=== PATIENT | female | born 1985 | race Caucasian/White ===

== ENCOUNTER 2017-04-11 10:55 | Emergency (ER) | payer OTHER ==
--- NOTE | 2017-04-11 11:12 | UC ---
Knee Pain HPI - HPI Summary HPI Summary: 31 YEAR OLD FEMALE PRESENTS WITH COMPLAINS OF LEFT LATERAL KNEE PAIN SECONDARY TO BLUNT TRAUMA. - History of Current Complaint Stated Complaint: LEFT KNEE INJURY WC Time Seen by Provider: 04/11/17 11:12 Hx Obtained From: Patient Hx Last Menstrual Period: 08/27/12 Onset/Duration: Sudden Onset Severity Initially: Moderate Severity Currently: Moderate - Allergies/Home Medications Allergies/Adverse Reactions: Allergies Allergy/AdvReac Type Severity Reaction Status Date / Time Shellfish Allergy Allergy Intermediate ANAPHYLACTI Verified 04/11/17 11:16 C PMH/Surg Hx/FS Hx/Imm Hx Previously Healthy: Yes - Surgical History Surgical History: Yes Surgery Procedure, Year, and Place: HERNIA REPAIR CHILD - Social History Substance Use Type: None Review of Systems Constitutional: Negative Skin: Negative Eyes: Negative ENT: Negative Respiratory: Negative Cardiovascular: Negative Gastrointestinal: Negative Genitourinary: Negative Motor: Negative Neurovascular: Negative Musculoskeletal: Myalgia, Other: - LEFT KNEE PAIN Neurological: Negative Psychological: Negative All Other Systems Reviewed And Are Negative: Yes Physical Exam Triage Information Reviewed: Yes Vital Signs Reviewed: Yes Eye Exam: Normal ENT Exam: Normal Dental Exam: Normal Neck exam: Normal Neck: Positive: 1 Respiratory Exam: Normal Cardiovascular Exam: Normal Abdominal Exam: Normal Musculoskeletal Exam: Normal Musculoskeletal: Positive: Strength Intact, ROM Intact, Other: - LEFT KNEE PAIN Neurological Exam: Normal Psychological Exam: Normal Skin Exam: Normal Knee Pain Course/Dx - Differential Dx/Diagnosis Provider Diagnoses: LEFT KNEE PAIN/SPRAIN Discharge - Discharge Plan Condition: Stable Disposition: HOME Prescriptions: Ibuprofen TAB* [Motrin TAB* 800 MG] 800 mg PO Q8H #30 tab Patient Education Materials: Knee Pain (ED) Referrals: No Primary Care Phys,NOPCP [Medical Doctor] - Luigi Leonard MD [Medical Doctor] -
[2017-04-11 11:39] VITALS: BP 132/85
--- NOTE | 2017-04-11 11:42 | RAD ---
INDICATION: Left knee injury COMPARISON: None TECHNIQUE: AP, lateral, tunnel, and sunrise views were obtained. FINDINGS: The bony structures, joint spaces, and soft tissues are normal for age. IMPRESSION: NEGATIVE EXAMINATION.
== END 2017-04-11 12:07 | disposition home or self-care (01) ==
LOC: UCCORT 10:55
DX: S83.92XA Sprain of unspecified site of left knee, initial encounter (principal); X58.XXXA Exposure to other specified factors, initial encounter; Z91.013 Allergy to seafood
CPT/HCPCS: 99203; G0463

== ENCOUNTER 2022-07-14 07:42 | Inpatient (IN) ==
[2022-07-14] MEDS ORDERED: Propofol 10 mg/ml 100 ML BTL 1,000 MG/100 ML BTL ONE (07:56)
[2022-07-14] MEDS ORDERED: Norepinephrine 16MCG/ML BAGD5W 4,000 MCG/250 ML BAG IV ONE (07:56)
[2022-07-14] MEDS ORDERED: EPINEPHrine SYR 0.1MG/ML 10 ml SYRINGE ONE (08:51)
[2022-07-14] MEDS ORDERED: Rocuronium 50 mg VIAL 10 mg/ml 5 ml VIAL (50 mg) ONE (08:53)
[2022-07-14] MEDS ORDERED: fentaNYL 100 mcg/2 ml 50 MCG/ML VIAL ONE ×2 (08:57→08:59)
[2022-07-14] MEDS ORDERED: fentaNYL 100 mcg/2 ml 50 MCG/ML VIAL IV SLOW PU ONE ×2 (08:57→09:16)
[2022-07-14] MEDS ORDERED: Lactated Ringers 1000 ml BAG 1,000 ML IV ONE (08:59)
[2022-07-14] MEDS ORDERED: Propofol 10 mg/ml 100 ML BTL 100 ML IV SCH (09:00)
[2022-07-14] MEDS ORDERED: Norepinephrine 16MCG/ML BAGD5W 4,000 MCG/250 ML BAG IV SCH (09:00)
[2022-07-14] MEDS ORDERED: Rocuronium 50 mg VIAL 10 mg/ml 5 ml VIAL (50 mg) IV ONE (09:16)
[2022-07-14 09:21] LABS: Hematocrit 39 % (35-47); Hemoglobin 12.3 g/dL (12.0-16.0); Mean Corpuscular HGB Conc 32 g/dL (31-36); Mean Corpuscular Hemoglobin 31 pg (27-31); Mean Corpuscular Volume 96 fL (80-97); Mean Platelet Volume 8.7 fL (7.4-10.4); Platelet Count 187 10^3/uL (150-450); Red Blood Count 4.05 10^6 /uL (3.70-4.87); Red Cell Distribution Width 14 % (10-15)
[2022-07-14 09:22] LABS: Activated Partial Thrombo Time 45.3 seconds (26.0-38.0); INR 1.16 (0.88-1.18)
[2022-07-14] MEDS ORDERED: VASOPRESSIN IVPREMIX BTL 40 UNIT/100 ML BTL IV SCH (09:45)
[2022-07-14 09:50] LABS: ALT 42 U/L (7-52); Albumin 2.5 g/dL (3.2-5.2); Albumin/Globulin Ratio 1.1 (1-3); Alkaline Phosphatase 19 U/L (35-149); Anion Gap 18 mmol/L (2-11); Blood Urea Nitrogen 17 mg/dL (6-24); CKMB ng/mL 6.4 ng/mL (0.6-6.3); CO2 Carbon Dioxide 11 mmol/L (22-32); Calcium 6.8 mg/dL (8.6-10.3); Chloride 102 mmol/L (101-111); Globulin 2.2 g/dL (2-4); Glucose 249 mg/dL (70-100); Sodium 131 mmol/L (135-145); Total Protein 4.7 g/dL (6.4-8.9); eGFR CKD-EPI 42.3 (>60)
[2022-07-14 09:58] LABS: PCO2 Arterial 42 mmHg (35-45); PO2 Arterial 68 mmHg (80-100)
[2022-07-14] MEDS ORDERED: Zosyn per Pharmacy NOTE FOLLOW UP SCH (10:00)
[2022-07-14] MEDS ORDERED: Chlorhexidine MOUTHWASH 0.12% 15 ML UDC SWISH SPIT SCH (10:00)
[2022-07-14] MEDS ORDERED: Pantoprazole VIAL 40 MG VIAL IV SCH (10:00)
[2022-07-14] MEDS ORDERED: ZOSYN 3.375 GM Q6H - Intermittant 30 min Infusion IV ONE (10:00)
[2022-07-14] MEDS ORDERED: Vancomycin per Pharmacy 1 EA NOTE FOLLOW UP SCH (10:00)
[2022-07-14] MEDS: EPINEPHRINE 1 MG/ML 4 MG in D5W 1000 ML BAG 996 ML IV SCH ×2 (10:06→12:06)
[2022-07-14] MEDS: Propofol 10 mg/ml 100 ML BTL 1,000 MG/100 ML BTL IV SCH ×2 (10:07→10:26)
[2022-07-14] MEDS: Norepinephrine 16MCG/ML BAGD5W 4,000 MCG/250 ML BAG IV SCH ×3 (10:23→11:22)
[2022-07-14] MEDS ORDERED: Vancomycin 1,000 MG in NS 0.9% 250 ml 250 ML IVPB ONE (10:30)
[2022-07-14 10:39] LABS: ABS Neutrophils 0.2 10^3/ul (1.5-7.7)
[2022-07-14 10:46] LABS: ABS Lymphocytes 0.7 10^3/ul (1.0-4.8); Eosinophil % 1.2 %; Lymphocyte % 70.4 %; Nucleated Red Blood Cells % 1.8
[2022-07-14] MEDS ORDERED: Albumin Human 5% 12.5 GM/250 ML BTL IV ONE (11:02)
[2022-07-14 11:27] LABS: PCO2 Arterial 48 mmHg (35-45)
[2022-07-14 11:33] LABS: PO2 Arterial 57 mmHg (80-100)
[2022-07-14 11:54] LABS: Urine Appearance Cloudy; Urine Bilirubin Negative (Negative); Urine Blood 2+ (Negative); Urine Color Yellow; Urine Glucose 1+(50 mg/dL) (Negative); Urine Ketones Negative (Negative); Urine Nitrite Negative (Negative); Urine Protein 1+(30 mg/dL) (Negative); Urine Specific Gravity 1.008 (1.002-1.030); Urine Urobilinogen Negative (Negative)
[2022-07-14 12:03] LABS: Urine Bacteria 1+ (Absent); Urine Red Blood Cell Trace(0-2/hpf) (Absent); Urine White Blood Cell Trace(0-5/hpf) (Absent)
[2022-07-14] MEDS ORDERED: Sodium Bicarbonate 8.4% SYR 50 ml SYRINGE ONE (12:07)
[2022-07-14 12:14] LABS: Magnesium 1.4 mg/dL (1.9-2.7)
[2022-07-14] MEDS ORDERED: Sodium Bicarbonate 8.4% SYR 50 ml SYRINGE IV ONE (12:17)
[2022-07-14 12:31] VITALS: BP 108/74
[2022-07-14] MEDS ORDERED: Sodium Bicarbonate 8.4% IV 100 MEQ in D5W 1000 ML BAG IV SCH (13:00)
[2022-07-14 13:04] LABS: TSH Ultra Thyroid Stim Horm 0.94 mcIU/mL (0.34-5.60)
[2022-07-14 13:05] LABS: Potassium, Whole Blood 3.7 mmol/L (3.4-4.5); Sodium, Whole Blood 122 mmol/L (136-145)
[2022-07-14 13:09] LABS: Free T4 0.89 ng/dL (0.61-1.12)
[2022-07-14] MEDS ORDERED: LORazepam 2 mg VIAL 1 ml IV PUSH PRN (13:36)
[2022-07-14] MEDS ORDERED: Lorazepam PYXIS KEY PRN (13:44)
[2022-07-14] MEDS ORDERED: ZOSYN 3.375 GM Q8H per EXTENDED INFUSION IV SCH (14:00)
== END 2022-07-14 13:35 | disposition expired | DRG 871 ==
LOC: ICU 08:34
PROVIDERS: ADMIT Internal Medicine Critical Care Medicine; ATTEND Internal Medicine Critical Care Medicine